=== PATIENT | male | born 1985 | race African-American/Black ===

== ENCOUNTER 2025-01-12 10:06 | Inpatient (IN) | payer MEDICAID ==
[~2025-01-12] VITALS: Ht 182.9 cm; Wt 82.6 kg
[2025-01-12 10:59] LABS: BASOPHILS % 0.5 % (0.0-2.0); EOSINOPHILS % 1.7 % (0.0-5.0); HEMATOCRIT. 44.7 % (42.0-52.0); HEMOGLOBIN. 14.5 g/dL (14.0-18.0); LYMPHOCYTES % 15.7 % (20.0-50.0); MEAN PLATELET VOLUME 10.2 fl (7.4-10.4); MONOCYTES % 10.6 % (2.0-8.0); NEUTROPHILS % 71.5 % (40.0-76.0); PLATELET 199 x1000/uL (130-400); RED BLOOD CELL COUNT 5.29 mill/uL (4.7-6.1); RED CELL DISTRIBUTION WIDTH 14.9 % (11.6-14.6)
[2025-01-12 11:13] LABS: CREATININE 1.0 mg/dL (0.6-1.3); UREA NITROGEN BLOOD 14 mg/dL (9-23)
[2025-01-12 12:13] LABS: TROPONIN I HIGH SENSITIVITY 75 ng/L (3.0-53)
[2025-01-12] MEDS: ENOXAPARIN 80MG/0.8ML SYR SUBCUT ONE (12:57)
[2025-01-12 13:34] LABS: TROPONIN I HIGH SENSITIVITY 73 ng/L (3.0-53)
[2025-01-12] MEDS ORDERED: IPRATROPIUM/ALBUTEROL 0.5-3(2.5)MG/3ML NEB HHN PRN (14:30)
[2025-01-12] MEDS ORDERED: ACETAMINOPHEN 325MG TABLET PO PRN ×2 (14:30)
[2025-01-12] MEDS ORDERED: ONDANSETRON HCL 4MG/2ML INJ IV PRN (14:30)
[2025-01-12] MEDS ORDERED: DOCUSATE SODIUM 100MG CAPSULE PO PRN (14:30)
[2025-01-12] MEDS: FUROSEMIDE 40MG/4ML VIAL IVP SCH (14:49)
[2025-01-12] MEDS: METHYLPREDNISOLONE SOD SUCC 125MG/2ML (ACT-O-VIAL) IV SCH (14:49)
[2025-01-12] MEDS: PANTOPRAZOLE SODIUM 40 MG/VIAL IV SCH (15:24)
[2025-01-12] MEDS: ASPIRIN 81MG TABLET PO SCH (15:25)
[2025-01-12 15:27] VITALS: BP 139/102; PULSE 69; RESP 18; TEMP 36.7
[2025-01-12 15:34] LABS: TROPONIN I HIGH SENSITIVITY 69 ng/L (3.0-53)
[2025-01-12 15:59] VITALS: BP 130/100; PULSE 68; RESP 18; TEMP 36.8; O2SAT 99
[2025-01-12 17:33] LABS: CLARITY URINE CLEAR (CLEAR); COLOR URINE YELLOW (YELLOW); GLUCOSE URINE NEGATIVE (NEGATIVE); KETONES URINE NEGATIVE (NEGATIVE); LEUKOCYTE ESTERASE URINE NEGATIVE (NEGATIVE); NITRITE URINE NEGATIVE (NEGATIVE); OCCULT BLOOD URINE NEGATIVE (NEGATIVE); PH URINE 5.5 (4.5-8.0); PROTEIN URINE 1+ (NEGATIVE); SPECIFIC GRAVITY URINE 1.014 (1.005-1.030); UROBILINOGEN URINE 1.0 E.U./dL (0.2-1.0)
[2025-01-12 17:52] LABS: *AMPHETAMINES SCREEN URINE PRESUMPTIVE POSITIVE (NEGATIVE); *BARBITURATES SCREEN URINE NEGATIVE (NEGATIVE); *BENZODIAZEPINES SCREEN URINE NEGATIVE (NEGATIVE)
[2025-01-12 17:53] LABS: *COCAINE SCREEN URINE NEGATIVE (NEGATIVE); CANNABINOID URINE SCREEN PRESUMPTIVE POSITIVE (NEGATIVE); ECSTASY MDMA SCREEN URINE CONF.TEST INDICATED (NEGATIVE); METHADONE URINE SCREEN NEGATIVE (NEGATIVE); OPIATES URINE SCREEN NEGATIVE (NEGATIVE); PHENCYCLIDINE URINE SCREEN NEGATIVE (NEGATIVE)
[2025-01-12 18:15] LABS: BACTERIA URINE NONE SEEN; RBC URINE 0-2 /hpf (0-2); SQUAMOUS EPITHELIAL CELL URINE RARE /lpf (RARE/1+); WBC URINE 0-2 /hpf (0-2)
[2025-01-12 18:15] LABS: PHOSPHORUS 3.0 mg/dL (2.5-4.9)
[2025-01-12 20:00] VITALS: BP 144/107; PULSE 85; RESP 16; TEMP 36.3; O2SAT 97
[2025-01-12] MEDS: IPRATROPIUM/ALBUTEROL 0.5-3(2.5)MG/3ML NEB HHN SCH (20:51)
[2025-01-12 20:59] VITALS: PULSE 94; RESP 18; O2SAT 97
[2025-01-12] MEDS: ATORVASTATIN CALCIUM 40MG TABLET PO SCH (21:03)
[2025-01-12] MEDS: ENOXAPARIN 40MG/0.4ML SYR SUBCUT SCH (21:03)
[2025-01-12 22:23] LABS: LACTIC ACID 3.4 mmol/L (0.4-2.0)
[2025-01-13] VITALS (9 sets, daily range): BP systolic 122–156; BP diastolic 86–108; PULSE 52–93; RESP 16–22; TEMP 36.2–37; O2SAT 95–99
[2025-01-13 00:57] LABS: CREATINE KINASE MB FRACTION 2.4 ng/mL (0.5-3.6); TROPONIN I HIGH SENSITIVITY 41.0 ng/L (3.0-53)
[2025-01-13] MEDS: IPRATROPIUM/ALBUTEROL 0.5-3(2.5)MG/3ML NEB HHN SCH (01:16)
[2025-01-13 07:43] LABS: HEMATOCRIT. 44.1 % (42.0-52.0); HEMOGLOBIN. 14.1 g/dL (14.0-18.0); MEAN PLATELET VOLUME 10.9 fl (7.4-10.4); PLATELET 204 x1000/uL (130-400); RED BLOOD CELL COUNT 5.26 mill/uL (4.7-6.1); RED CELL DISTRIBUTION WIDTH 14.7 % (11.6-14.6)
[2025-01-13] MEDS ORDERED: SACU1TAB7 PO (07:43)
[2025-01-13 08:11] LABS: CREATINE KINASE MB FRACTION 2.9 ng/mL (0.5-3.6)
[2025-01-13 08:12] LABS: TROPONIN I HIGH SENSITIVITY 49 ng/L (3.0-53)
[2025-01-13 08:13] LABS: CREATININE 1.0 mg/dL (0.6-1.3); TRIGLYCERIDE 57 mg/dL (0-150)
[2025-01-13 08:14] LABS: LDL CHOLESTEROL 60 mg/dL (5-100); UREA NITROGEN BLOOD 17 mg/dL (9-23)
[2025-01-13] MEDS: METHYLPREDNISOLONE SOD SUCC 40MG/ML (ACT-O-VIAL) IV SCH (08:33)
[2025-01-13] MEDS: FUROSEMIDE 40MG/4ML VIAL IVP SCH ×2 (08:33→17:35)
[2025-01-13] MEDS: ASPIRIN 81MG EC TABLET PO SCH (08:34)
[2025-01-13] MEDS: SACUBITRIL/VALSARTAN 49MG/51MG TABLET PO SCH (08:34)
[2025-01-13] MEDS: GABAPENTIN 100MG CAPSULE PO SCH (08:34)
[2025-01-13] MEDS ORDERED: METHYLPREDNISOLONE 40MG/ML INJ IV SCH (09:00)
[2025-01-13] MEDS: CLONIDINE 0.1MG TABLET PO PRN (12:12)
[2025-01-13 20:04] LABS: LYMPHOCYTES % MANUAL 11.0 % (20.0-50.0); MONOCYTES % MANUAL 8.0 % (2.0-8.0); NEUTROPHILS % MANUAL 81.0 % (45.0-75.0); PLATELET ESTIMATE NORMAL
[2025-01-14] VITALS (7 sets, daily range): BP systolic 119–125; BP diastolic 60–88; PULSE 80–107; RESP 16–20; TEMP 36.2–36.6; O2SAT 96–100
[2025-01-14 09:01] LABS: CREATININE 1.1 mg/dL (0.6-1.3); UREA NITROGEN BLOOD 18 mg/dL (9-23)
== END 2025-01-14 17:00 | disposition left against medical advice (07) | DRG 812 ==
LOC: ER 10:06 → 8WST 12:35 → EDBEDREQ 12:36 → EDBEDREQTM 12:36
PROVIDERS: ADMIT Internal Medicine; ATTEND Internal Medicine
DX: T43.651A Poisoning by methamphetamines accidental (unintentional), initial encounter (principal); J96.01 Acute respiratory failure with hypoxia; I21.A1 Myocardial infarction type 2; I50.23 Acute on chronic systolic (congestive) heart failure; I11.0 Hypertensive heart disease with heart failure; F12.10 Cannabis abuse, uncomplicated; Z53.29 Procedure and treatment not carried out because of patient's decision for other reasons; F15.10 Other stimulant abuse, uncomplicated; J98.4 Other disorders of lung; J68.0 Bronchitis and pneumonitis due to chemicals, gases, fumes and vapors; F17.210 Nicotine dependence, cigarettes, uncomplicated; Z83.3 Family history of diabetes mellitus; Z79.899 Other long term (current) drug therapy; Y92.89 Other specified places as the place of occurrence of the external cause; Z71.6 Tobacco abuse counseling
CPT/HCPCS: 36415; 71045; 80048; 80061; 80305; 81003; 82550; 82553; 83605; 83735; 83880; 84100; 84484; 85025; 93005; 94070; 94640; 94760; 99291; A4606; J1650; J1940; J2470; J2919